=== PATIENT | male | born 1955 | race Caucasian/White ===

== ENCOUNTER 2016-11-01 14:17 | Inpatient (IN) | payer OTHER ==
[2016-11-01] MEDS ORDERED: ONDANSETRON 4 MG/2 ML VIAL ONE (15:00)
[2016-11-01] MEDS ORDERED: ONDANSETRON 4 MG/2 ML VIAL IVP ONE (15:01)
[2016-11-01] MEDS ORDERED: NS 1,000 ML IV ONE ×2 (15:04→15:27)
[2016-11-01 15:25] LABS: ADD DIFF? YES; ADD MORPH? NO; ADD SCAN? NO; ATYPICAL LYMPHOCYTE FLAG 0 (0-99); FRAGMENT RBC FLAG 0 (0-99); HEMATOCRIT 42.1 % (40.0-51.0); HEMOGLOBIN 13.7 g/dL (13.7-17.5); LEFT SHIFT FLG 40 (0-99); LIPEMIA HEMOLYSIS FLAG 80 (0-99); MEAN CELL HEMOGLOBIN CONCENTR. 32.5 g/dL (32.4-36.7); MEAN CELL VOLUME 76.7 fL (81.5-99.8); MEAN PLATELET VOLUME 10.3 fL (8.7-11.7); PLATELET CLUMPS FLAG 10 (0-99); PLATELET COUNT 346 10^3/uL (150-400); RED BLOOD CELL COUNT 5.49 10^6/uL (4.40-6.38); RED CELL DISTRIBUTION WIDTH 15.9 % (11.5-15.2)
[2016-11-01 15:26] LABS: ALANINE AMINOTRANSFERASE 54 IU/L (21-72); ALBUMIN 3.7 g/dL (3.5-5.0); ALKALINE PHOSPHATASE 212 IU/L (38-126); ANION GAP 12 mEq/L (8-16); ASPARTATE AMINOTRANSFERASE 32 IU/L (17-59); BILIRUBIN,TOTAL 1.6 mg/dL (0.1-1.4); CALCIUM 8.5 mg/dL (8.5-10.4); CARBON DIOXIDE 25 mEq/l (22-31); CHLORIDE 92 mEq/L (97-110); GLOMERULAR FILTRATION RATE > 60; GLUCOSE 108 mg/dL (70-100); POTASSIUM 4.9 mEq/L (3.5-5.2); SODIUM 129 mEq/L (134-144); TOTAL PROTEIN 6.9 g/dL (6.3-8.2)
[2016-11-01] MEDS ORDERED: METOCLOPRAMIDE 10 MG/2 ML VIAL IVP ONE (15:27)
--- NOTE | 2016-11-01 15:30 | EDPHY ---
H & P Stated Complaint: n/v/d since wednesday Time Seen by Provider: 11/01/16 15:05 HPI/ROS: CHIEF COMPLAINT: Vomiting and diarrhea HISTORY OF PRESENT ILLNESS: Patient is a 61-year-old man who comes to the emergency department complaining of nausea, vomiting and diarrhea for the last 4 days. No fever. No abdominal pain. No chest pain or shortness of breath. The patient has no sick contacts. He denies any cardiac history. He has not had any blood in his vomit or stool. The diarrhea resolved yesterday but he continues to have nausea and has not been able to eat or drink. He feels dehydrated. REVIEW OF SYSTEMS: Constitutional: denies: chills, fever, recent illness, recent injury EENTM: denies: blurred vision, double vision, nose congestion Respiratory: denies: cough, shortness of breath Cardiac: denies: chest pain, irregular heart rate, lightheadedness, palpitations Gastrointestinal/Abdominal: see HPI Genitourinary: denies: dysuria, frequency, hematuria, pain Musculoskeletal: denies: joint pain, muscle pain Skin: denies: lesions, rash, jaundice, bruising Neurological: denies: headache, numbness, paresthesia, tingling, dizziness, weakness Hematologic/Lymphatic: denies: blood clots, easy bleeding, easy bruising Immunologic/allergic: denies: HIV/AIDS, transplant EXAM: GENERAL: Well-appearing, well-nourished and in no acute distress. HEAD: Atraumatic, normocephalic. EYES: Pupils equal round and reactive to light, extraocular movements intact, sclera anicteric, conjunctiva are normal. ENT: TMs normal, nares patent, oropharynx clear without exudates. Dry mucous membranes. NECK: Normal range of motion, supple without lymphadenopathy or JVD. LUNGS: Breath sounds clear to auscultation bilaterally and equal. No wheezes rales or rhonchi. HEART: Regular rate and rhythm without murmurs, rubs or gallops. ABDOMEN: Soft, nontender, normoactive bowel sounds. No guarding, no rebound. No masses appreciated. BACK: No CVA tenderness, no spinal tenderness, step-offs or deformities EXTREMITIES: Normal range of motion, no pitting or edema. No clubbing or cyanosis. NEUROLOGICAL: Cranial nerves II through XII grossly intact. Normal speech, normal gait. 5/5 strength, normal movement in all extremities, normal sensation PSYCH: Normal mood, normal affect. SKIN: Warm, dry, normal turgor, no visible rashes or lesions. Source: Patient Exam Limitations: No limitations - Personal History Current Tetanus/Diphtheria Vaccine: Yes Tetanus Vaccine Date: 2006 - Medical/Surgical History Hx Asthma: No Hx Chronic Respiratory Disease: No Hx Diabetes: No Hx Cardiac Disease: No Hx Renal Disease: No Hx Cirrhosis: No Hx Alcoholism: No Hx HIV/AIDS: No Hx Splenectomy or Spleen Trauma: No Other PMH: htn, hyperlipidemia, depression - Family History Significant Family History: No pertinent family hx - Social History Smoking Status: Never smoked Alcohol Use: Sober Drug Use: None Constitutional: Initial Vital Signs Temperature (C) 36.7 C 11/01/16 14:32 Heart Rate 108 H 11/01/16 14:32 Respiratory Rate 22 H 11/01/16 14:32 Blood Pressure 128/82 H 11/01/16 14:32 O2 Sat (%) 94 11/01/16 14:32 O2 Delivery Mode Room Air Allergies/Adverse Reactions: Cephalosporins Allergy (Verified 11/01/16 14:31) shellfish derived Allergy (Verified 11/01/16 14:31) Home Medications: Medication Instructions Recorded Cholecalciferol Vit D3 [Vitamin D3 1,000 units PO DAILY 02/21/10 1000 units (OTC)] Lisinopril [Zestril 20 mg (RX)] 20 mg PO DAILY 02/21/10 buPROPion XL [Wellbutrin Xl] 150 mg PO DAILY 02/21/10 Aspirin [Aspirin 81mg (OTC)] 81 mg PO DAILY 07/17/13 Cyanocobalamin [Vitamin B12 100 100 mcg PO DAILY 07/17/13 MCG (OTC)] Montelukast Sodium [Singulair 10 10 mg PO DAILY 07/17/13 mg (RX)] Multivitamins [Tab-A-Kelly] 1 tab PO DAILY 07/17/13 ALPRAZolam [Xanax 0.5 MG (*)] 0.5 mg PO HS PRN 11/01/16 Ciprofloxacin [Cipro] 500 mg PO BID #14 tab 11/01/16 Methocarbamol [Robaxin 500 mg (*)] 1,000 mg PO HS PRN 11/01/16 Ondansetron Odt [Zofran Odt 4 mg 4 mg PO Q4 PRN #20 tab 11/01/16 (RX)] Strattera 40 Mg 40 mg PO DAILY 11/01/16 Testosterone Cyp 150 mg IM SA 11/01/16 [Depo-Testosterone 100mg/ml inj (*)] metroNIDAZOLE [Flagyl] 500 mg PO BID #20 tab 11/01/16 Medical Decision Making - Diagnostics Imaging Results: Imaging Impressions Abdomen CT 11/01/16 15:49 Impression: Long segment of diverticulosis with mild diverticulitis in the sigmoid colon. Mild adjacent lymphadenopathy, which could be from chronic inflammation in the mesentery. Additionally, the draining mesenteric vein, the inferior mesenteric vein, appears to have thrombus and surrounding inflammatory change. Results called and discussed with Cale Diaz MD on November 01, 2016 at 1640 hours. ED Course/Re-evaluation: Discussed the patient's CT results. I will start him on Cipro and Flagyl. He states this has worked for him in the past. His abdominal exam is nontender. He I also discussed with him the mesenteric vein thrombus. I consulted Dr. Osvaldo Sanchez who will consult. I suspect that will start the patient on blood thinners. 5:30 p.m. I discussed the case with Dr. Osvaldo Sanchez and then Dr. Aria Couch. We will start the patient on Xarelto as an outpatient. 5:45 p.m. the patient is persistently tachycardic despite fluids and is now febrile. I will administer Tylenol the rest of his fluid bolus and initiate sepsis workup. He may require admission. I will start him on a dose of Lovenox. 6:40 p.m. I discussed the case again with Dr. Couch who will admit to the medical service. Dr. Maddox is here evaluating the patient and agrees the plan thus far. The patient qualifies as sepsis but not severe sepsis Differential Diagnosis: Partial list of the Differential diagnosis considered include but were not limited to; diverticulitis, gastritis, and although unlikely based on the history and physical exam, I also considered ischemia, volvulus, appendicitis. I discussed these differential diagnoses and the plan with the patient as well as the usual and expected course. The patient understands that the diagnosis is provisional and that in medicine we are not always correct and that further workup is often warranted. Usual and customary warnings were given. All of the patient's questions were answered. The patient was instructed to return to the emergency department should the symptoms at all worsen or return, otherwise to followup with the physician as we discussed. Critical Care Time: I spent a total of 35 minutes of critical care time in obtaining history, performing a physical exam, bedside monitoring of interventions, collecting and interpreting tests and discussion with consultants but not including time spent performing procedures. - Data Points Laboratory Results: Laboratory Results 11/01/16 14:55 11/01/16 14:55 11/01/16 11/01/16 11/01/16 18:40 17:50 14:55 WBC RBC Hgb Hct MCV MCH MCHC RDW Plt Count MPV Neut % (Auto) Lymph % (Auto) [place] % (Auto) Eos % (Auto) Baso % (Auto) Nucleat RBC Rel Count Absolute Neuts (auto) Absolute Lymphs (auto) Absolute Monos (auto) Absolute Eos (auto) Absolute Basos (auto) Absolute Nucleated RBC Immature Gran % Seg Neutrophils % Band Neutrophils % Lymphocytes % Monocytes % Immature Gran # Absolute Seg Neuts Absolute Band Neuts Absolute Lymphocytes Absolute Monocytes RBC/WBC/PLT Morphology Platelet Estimate Giant Platelets ABG Lactic Acid 1.0 mmol/L mmol/L (0.5-1.6) VBG Lactic Acid 1.3 mmol/L mmol/L (0.7-2.1) Turbidity Cancelled Sodium Cancelled Potassium Cancelled Chloride Cancelled Carbon Dioxide Cancelled Anion Gap Cancelled BUN Cancelled Creatinine Cancelled Estimated GFR Cancelled Glucose Cancelled Calcium Cancelled Total Bilirubin 1.6 mg/dL H mg/dL (0.1-1.4) Conjugated Bilirubin 0.5 mg/dL mg/dL (0.0-0.5) Unconjugated Bilirubin 1.1 mg/dL mg/dL (0.0-1.1) AST 35 IU/L IU/L (17-59) ALT 48 IU/L IU/L (21-72) Alkaline Phosphatase 209 IU/L H IU/L (38-126) Total Protein 6.9 g/dL g/dL (6.3-8.2) Albumin 3.7 g/dL g/dL (3.5-5.0) Lipase 100.0 IU/L IU/L (23-300) Specimen Hemolysis Cancelled 11/01/16 11/01/16 14:55 14:55 WBC 20.33 10^3/uL H 10^3/uL (3.80-9.50) RBC 5.49 10^6/uL 10^6/uL (4.40-6.38) Hgb 13.7 g/dL g/dL (13.7-17.5) Hct 42.1 % % (40.0-51.0) MCV 76.7 fL L fL (81.5-99.8) MCH 25.0 pg L pg (27.9-34.1) MCHC 32.5 g/dL g/dL (32.4-36.7) RDW 15.9 % H % (11.5-15.2) Plt Count 346 10^3/uL 10^3/uL (150-400) MPV 10.3 fL fL (8.7-11.7) Neut % (Auto) Not Reported Lymph % (Auto) Not Reported [place] % (Auto) Not Reported Eos % (Auto) Not Reported Baso % (Auto) Not Reported Nucleat RBC Rel Count 0.0 % % (0.0-0.2) Absolute Neuts (auto) Not Reported Absolute Lymphs (auto) Not Reported Absolute Monos (auto) Not Reported Absolute Eos (auto) Not Reported Absolute Basos (auto) Not Reported Absolute Nucleated RBC 0.00 10^3/uL 10^3/uL (0-0.01) Immature Gran % Not Reported Seg Neutrophils % 80 % % Band Neutrophils % 11 % % Lymphocytes % 2 % % Monocytes % 7 % % Immature Gran # Not Reported Absolute Seg Neuts 16.26 10^/uL H 10^/uL (1.70-6.50) Absolute Band Neuts 2.24 10^3/uL H 10^3/uL (0.00-0.70) Absolute Lymphocytes 0.41 10^3/uL L 10^3/uL (1.00-3.00) Absolute Monocytes 1.42 10^3/uL H 10^3/uL (0.30-0.80) RBC/WBC/PLT Morphology NORMAL (NORMAL) Platelet Estimate ADEQUATE (ADEQ) Giant Platelets PRESENT H ABG Lactic Acid VBG Lactic Acid Turbidity Sodium 129 mEq/L L mEq/L (134-144) Potassium 4.9 mEq/L mEq/L (3.5-5.2) Chloride 92 mEq/L L mEq/L (97-110) Carbon Dioxide 25 mEq/l mEq/l (22-31) Anion Gap 12 mEq/L mEq/L (8-16) BUN 15 mg/dL mg/dL (7-23) Creatinine 1.0 mg/dL mg/dL (0.7-1.3) Estimated GFR > 60 Glucose 108 mg/dL H mg/dL (70-100) Calcium 8.5 mg/dL mg/dL (8.5-10.4) Total Bilirubin 1.6 mg/dL H mg/dL (0.1-1.4) Conjugated Bilirubin Unconjugated Bilirubin AST 32 IU/L IU/L (17-59) ALT 54 IU/L IU/L (21-72) Alkaline Phosphatase 212 IU/L H IU/L (38-126) Total Protein 6.9 g/dL g/dL (6.3-8.2) Albumin 3.7 g/dL g/dL (3.5-5.0) Lipase Specimen Hemolysis Medications Given: Discontinued Medications Acetaminophen (Tylenol) 1,000 mg PO EDNOW ONE Stop: 11/01/16 17:40 Last Admin: 11/01/16 17:56 Dose: 1,000 mg Ciprofloxacin (Cipro) 500 mg PO EDNOW ONE PRN Reason: Protocol Stop: 11/01/16 16:46 Last Admin: 11/01/16 16:51 Dose: 500 mg Enoxaparin Sodium (Lovenox) 100 mg SC BID CORBY Stop: 04/30/17 18:14 Last Admin: 11/01/16 18:20 Dose: 100 mg Sodium Chloride (Ns) 1,000 mls @ 0 mls/hr IV ONCE ONE PRN Reason: Wide Open Stop: 11/01/16 15:05 Last Admin: 11/01/16 15:05 Dose: 1,000 mls Sodium Chloride (Ns) 1,000 mls @ 0 mls/hr IV ONCE ONE PRN Reason: Wide Open Stop: 11/01/16 15:28 Last Admin: 11/01/16 15:35 Dose: 1,000 mls Sodium Chloride (Ns) 2,900 mls @ 5,800 mls/hr 30 ml/kg infuse over 30 min ( 2900 ml) IV EDNOW ONE Stop: 11/01/16 18:11 Last Admin: 11/01/16 17:56 Dose: 2,900 mls Metoclopramide HCl (Reglan Injection) 10 mg IVP EDNOW ONE Stop: 11/01/16 15:28 Last Admin: 11/01/16 15:33 Dose: 10 mg Metronidazole (Flagyl) 500 mg PO EDNOW ONE PRN Reason: Protocol Stop: 11/01/16 16:47 Last Admin: 11/01/16 16:51 Dose: 500 mg Ondansetron HCl (Zofran) 4 mg IVP EDNOW ONE Stop: 11/01/16 15:02 Last Admin: 11/01/16 15:04 Dose: 4 mg Departure - Departure Disposition: [facility] Acute Clinical Impression: Mesenteric vein thrombosis Diverticulitis Qualifiers: Diverticulitis site: large intestine Diverticulitis bleeding: without bleeding Diverticulitis complication: without perforation or abscess Qualified Code(s): K57.32 - Diverticulitis of large intestine without perforation or abscess without bleeding Sepsis Qualifiers: Sepsis type: sepsis due to unspecified organism Qualified Code(s): A41.9 - Sepsis, unspecified organism Condition: Fair
[2016-11-01] MEDS ORDERED: METOCLOPRAMIDE 10 MG/2 ML VIAL ONE (15:37)
[2016-11-01 15:58] LABS: ALBUMIN 3.7 g/dL (3.5-5.0); BILIRUBIN,TOTAL 1.6 mg/dL (0.1-1.4); BILIRUBIN-CONJUGATED 0.5 mg/dL (0.0-0.5); BILIRUBIN-UNCONJUGATED 1.1 mg/dL (0.0-1.1); TOTAL PROTEIN 6.9 g/dL (6.3-8.2)
[2016-11-01] MEDS ORDERED: IOPAMIDOL (ISOVUE-300) 100 ML BTL ONE (16:01)
[2016-11-01 16:04] LABS: GIANT PLATELETS PRESENT; PLATELET ESTIMATE ADEQUATE (ADEQ)
[2016-11-01] MEDS ORDERED: CIPROFLOXACIN 500 MG TAB PO ONE (16:45)
[2016-11-01] MEDS ORDERED: metroNIDAZOLE 500 MG TAB PO ONE (16:46)
[2016-11-01] MEDS ORDERED: ACETAMINOPHEN 500 MG TAB PO ONE (17:39)
[2016-11-01] MEDS ORDERED: NS 2,900 ML IV ONE (17:42)
[2016-11-01] MEDS ORDERED: ENOXAPARIN 100 MG/ML SYR SC SCH (18:15)
[2016-11-01] MEDS ORDERED: ACETAMINOPHEN 325 MG TAB PO PRN (19:46)
--- NOTE | 2016-11-01 20:06 | GHP ---
[f rep st] HISTORY AND PHYSICAL DATE OF ADMISSION: 11/01/2016 REASON FOR CONSULTATION: Asked to see the patient by the emergency room physician in regard to abdo jeanna pain. HISTORY OF PRESENT ILLNESS: This 61-year-old male was previously healthy but has had abdominal pain for several days. It is suprapubic and then moved cephalad to well above the umbilicus. He states it is different in character than his previous episodes of diverticulitis. A CT scan done in the emergency department shows inferior mesenteric vein thrombosis extending all t he way to its junction with the portal vein-splenic vein confluence. There is inflammation around t his, and the inflammation is more impressive cephalad to the sigmoid colon than it is around the sig moid. While the radiologist did call this diverticulitis, I discussed this with him, and it is fair ly early or mild or even chronic diverticulitis, as opposed to an impressive acute inflammatory proc ess. Therefore, I suspect this is not the usual kind of diverticulitis which is clearly causative o f an inferior mesenteric vein thrombosis and that there is a possibility the patient has developed a primary inferior mesenteric vein thrombosis. Inferior mesenteric vein thrombosis carries significant mortality and requires anticoagulation. I w ould be uncomfortable sending this patient home merely on Xarelto at this time and feel he should re ceive a heparin product immediately and then be transitioned to an anticoagulant orally and observed for any worsening symptoms. I do not feel there is any role for interventional radiology for clot lysis at this time. ALLERGIES: Cephalexin. CURRENT MEDICATIONS: Lisinopril, simvastatin, several antidepressants, aspirin 81 mg. SOCIAL HISTORY: Nonsmoker. Alcohol use is rare. 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 PAST SURGICAL HISTORY: Laparoscopic cholecystectomy, varicocelectomy, left hip impingement correcti on. REVIEW OF SYSTEMS: Denies asthma, heart trouble, diabetes, epilepsy, or rheumatic fever. He denies any previous blood clots. PHYSICAL EXAMINATION: GENERAL: Pleasant, obese male in mild distress. HEENT: No scleral icterus. Pharynx clear. NECK: Supple without adenopathy. LUNGS: Clear. HEART: Normal S1, S2 without m urmur. ABDOMEN: Soft with mild pain on palpation, none in the left lower quadrant. No masses or h ernias are found. LABORATORY EXAM: White blood count of 20,000, which, again, is out of proportion to the minimal div erticulitis that he has. Lactic acid is normal at 1.0. Electrolytes show mild hyponatremia. Creat inine is 1, bilirubin 1.6. Lipase is normal. ASSESSMENT: Inferior mesenteric vein thrombosis with surrounding inflammatory changes in the fat st ructures, extending cephalad well above the sigmoid colon. I believe his primary problem is inferio r mesenteric vein thrombosis with the surrounding inflammatory changes of phlebitis and that the div erticulitis is a minor contributor to his pain. As this has the potential for significant morbidity and the literature states a 13% mortality in cases of inferior mesenteric vein thrombosis, I have r ecommended he be admitted by the medicine service. I would recommend a hypercoagulation workup be d one, as this may be a primary event, and the patient be anticoagulated adequately prior to discharge . A question moving forward will be the length of time the anticoagulation should continue. An inf erior mesenteric vein thrombosis caused by severe diverticulitis (most severe diverticulitis does no t cause such a thrombosis) would likely only require a short 3-month type course of anticoagulation after the diverticulitis is treated. If this is a primary event from a hypercoagulable state, a lif etime of anticoagulation might be appropriate. /[id number]/MODL
[2016-11-01] MEDS: NS 1,000 ML IV SCH (20:30)
[2016-11-01] MEDS: CIPROFLOXACIN 400 MG/DEXTROSE 200 ML IV SCH (20:30)
[2016-11-01] MEDS: ENOXAPARIN 100 MG/ML SYR SC SCH (20:31)
--- NOTE | 2016-11-01 20:47 | GHP ---
[f rep st] HISTORY AND PHYSICAL DATE OF ADMISSION: 09/01/2016 CHIEF COMPLAINT: Diarrhea. HISTORY OF PRESENT ILLNESS: The patient is a 61-year-old male who has had nausea, vomiting, and mauricio rrhea for the last 4 days. He thought he had a viral gastroenteritis. He has had a little bit of f ever. He has had some abdominal pain in his left lower quadrant. He has had minimal p.o. intake fo r the last 2 days. He has never had any blood in his stool. PAST MEDICAL HISTORY: 1. Hypertension. 2. Hyperlipidemia. 3. Recurrent diverticulitis. PAST SURGICAL HISTORY: Cholecystectomy. MEDICATIONS: Please see computer records for full, detailed list. ALLERGIES: To cephalosporins and shellfish. SOCIAL HISTORY: No smoking. Occasional alcohol. He lives alone. REVIEW OF SYSTEMS: Complete review of systems obtained. Review of systems is negative regarding co nstitutional, HEENT, GI, pulmonary, cardiovascular, , hematology, skin, musculoskeletal, endocrine , psych, except for positives as noted in the HPI. FAMILY HISTORY: Mom with Crohn disease. Sister with diverticulitis. PHYSICAL EXAMINATION: GENERAL: Well-developed, well-nourished male, in no acute distress. VITAL S IGNS: Temperature is 38.5, pulse 112, blood pressure 118/72, satting 95% in room air. EYES: Araceli l conjunctivae. Pupils equal, round, reactive to light. ENT: Normal ears and nose. Hearing intac t. Normal lips and teeth. Oropharynx moist. NECK: Trachea midline. No thyromegaly. CHEST: Nor mal respiratory effort. Lungs clear to auscultation bilaterally. CARDIOVASCULAR SYSTEM: Regular r hythm. No murmur. No lower extremity edema. ABDOMEN: Soft, nontender. No hepatosplenomegaly. S KIN: Warm, dry, intact, without rash. MUSCULOSKELETAL: No cyanosis or clubbing. Strength 5/5 in upper and lower extremities. NEUROLOGIC: Cranial nerves intact. Normal sensation to light touch. PSYCH ASSESSMENT: Alert and oriented x3, with normal affect, normal judgment and insight, and norm al memory. LABORATORY DATA: White count 20.33 with 11% bands. Hematocrit 42. Platelets 346. Sodium 129, potassium 4.9, chloride 92, bicarb 25, BUN 15, creatinine 1.0, glucose 108, total bili 1 .6, alk phos 209. Lactate is 1.3. CT scan shows mild sigmoid diverticulitis. He has an inferior mesenteric vein thrombosis. This case was discussed with Dr. Diaz, emergency room physician. He has spoken with Dr. Yayo junior. Dr. Sanchez has seen the patient in consultation, believes that he needs inpatient treatment. ASSESSMENT AND PLAN: 1. Sigmoid diverticulitis: Continue ciprofloxacin and Flagyl started in the emergency room. 2. Inferior mesenteric vein thrombosis: Continue subcu Lovenox started in the emergency room. He can be transitioned to warfarin versus an oral agent. His lactate is normal, and I do not think his bowel is at risk at this time. However, he needs close monitoring. 3. Sepsis versus systemic inflammatory response syndrome: Patient is tachycardic and febrile, alth ough quite nontoxic appearing. His lactate is okay. He will be administered antibiotics and IV flu ids as above, and continue to monitor. 4. Hypertension: Continue home medications, once reconciled. COR STATUS: Full. ADMISSION STATUS: Will admit to inpatient as he is quite ill and anticipate greater than 2 midnight s required for stabilization. DEEP VENOUS THROMBOSIS PROPHYLAXIS: Full anticoagulation as discussed above. /[id number]/MODL
[2016-11-01] MEDS: oxyCODONE IR 5 MG TAB PO PRN (20:49)
[2016-11-02] MEDS: oxyCODONE IR 5 MG TAB PO PRN ×4 (01:58→21:45)
[2016-11-02 04:46] LABS: ADD DIFF? YES; ADD MORPH? NO; ADD SCAN? NO; ATYPICAL LYMPHOCYTE FLAG 10 (0-99); FRAGMENT RBC FLAG 0 (0-99); HEMATOCRIT 36.9 % (40.0-51.0); HEMOGLOBIN 11.9 g/dL (13.7-17.5); LEFT SHIFT FLG 20 (0-99); LIPEMIA HEMOLYSIS FLAG 80 (0-99); MEAN CELL HEMOGLOBIN 25.1 pg (27.9-34.1); MEAN CELL HEMOGLOBIN CONCENTR. 32.2 g/dL (32.4-36.7); MEAN CELL VOLUME 77.8 fL (81.5-99.8); MEAN PLATELET VOLUME 10.1 fL (8.7-11.7); PLATELET CLUMPS FLAG 0 (0-99); PLATELET COUNT 317 10^3/uL (150-400); RED BLOOD CELL COUNT 4.74 10^6/uL (4.40-6.38)
[2016-11-02 05:06] LABS: ALANINE AMINOTRANSFERASE 46 IU/L (21-72); ALKALINE PHOSPHATASE 189 IU/L (38-126); ANION GAP 8 mEq/L (8-16); ASPARTATE AMINOTRANSFERASE 28 IU/L (17-59); BILIRUBIN,TOTAL 1.3 mg/dL (0.1-1.4); BILIRUBIN-CONJUGATED 0.5 mg/dL (0.0-0.5); BILIRUBIN-UNCONJUGATED 0.8 mg/dL (0.0-1.1); CALCIUM 7.5 mg/dL (8.5-10.4); CARBON DIOXIDE 21 mEq/l (22-31); CHLORIDE 101 mEq/L (97-110); GLOMERULAR FILTRATION RATE > 60; GLUCOSE 103 mg/dL (70-100); POTASSIUM 4.5 mEq/L (3.5-5.2); SODIUM 130 mEq/L (134-144); TOTAL PROTEIN 5.7 g/dL (6.3-8.2)
[2016-11-02 05:18] LABS: INR 1.28 (0.83-1.16)
[2016-11-02 05:35] LABS: HYPOCHROMIA 1+; POLYCHROMASIA 1+
[2016-11-02 05:36] LABS: PLATELET ESTIMATE ADEQUATE (ADEQ)
[2016-11-02] MEDS: CIPROFLOXACIN 400 MG/DEXTROSE 200 ML IV SCH ×2 (08:07→20:09)
[2016-11-02 09:08] VITALS: RESP 18
[2016-11-02] MEDS: ENOXAPARIN 100 MG/ML SYR SC SCH ×2 (10:32→20:09)
--- NOTE | 2016-11-02 11:20 | HOSPPROG ---
Hospitalist Progress Note Assessment/Plan: 61 yo admitted with abdominal pain, diagnosed with diverticulitis. This was complicated by inferior mesenteric vein thrombosis likely secondary to the inflammation of the diverticulitis. # diverticulitis. Still symptomatic but improving. Will continue IV antibiotics and IV fluids with bowel rest. # inferior mesenteric vein thrombosis. Likely secondary to inflammation of diverticulitis. Doubt secondary hypercoagulable state given the thrombus is right in the area of the diverticulitis. Will treat for 3-6 months and defer to outpatient physician if they want to pursue a hyper coag panel do not feel it is necessary at this time. # dyslipidemia # hypertension Subjective: pt new to me and chart reviewed, feeling a bit better today but still with discomfort LLQ. no cp, no sob, no HAROON Objective: Vital Signs Temp Pulse Resp BP Pulse Ox 36.8 C 98 18 117/72 100 11/02/16 08:00 11/02/16 08:00 11/02/16 08:00 11/02/16 04:00 11/02/16 08:00 Laboratory Results 11/02/16 04:36 11/02/16 04:36 11/01/16 11/02/16 11/03/16 05:59 05:59 05:59 Intake Total 2900 Output Total 475 Balance 2425 PT 16.0 SEC (12.0-15.0) H 11/02/16 04:36 INR 1.28 (0.83-1.16) H 11/02/16 04:36 - Physical Exam Constitutional: no apparent distress, obese Eyes: PERRL, anicteric sclera, EOMI Ears, Nose, Mouth, Throat: moist mucous membranes, hearing normal Cardiovascular: regular rate and rhythym, no murmur, rub, or gallop Respiratory: no respiratory distress, clear to auscultation Gastrointestinal: normoactive bowel sounds, no palpable masses, tenderness, distension Genitourinary: No pan in urethra Skin: warm, normal color Musculoskeletal: full muscle strength Neurologic: AAOx3 Psychiatric: interacting appropriately, not anxious, not encephalopathic ICD10 Worksheet Patient Problems: Problems Problem Status Onset Acute cholecystitis Acute Diverticulitis Acute Mesenteric vein thrombosis Acute Sepsis Acute
[2016-11-02] MEDS ORDERED: ALPRAZolam 0.5 MG TAB PO PRN (11:58)
[2016-11-02] MEDS ORDERED: METHOCARBAMOL 500 MG TAB PO PRN (11:58)
[2016-11-02] MEDS: ONDANSETRON 4 MG/2 ML VIAL IVP PRN ×2 (12:51→21:45)
[2016-11-02] MEDS: TEARS/DEXTRAN 70/HYPROMELLOSE 15 ML OPHT.BTL EACHEYE PRN (20:09)
[2016-11-02] MEDS ORDERED: IPRATROPIUM/ALBUTEROL 3 ML DEYVIAL ONE (20:45)
[2016-11-02] MEDS: NS 1,000 ML IV SCH (21:45)
[2016-11-03] MEDS: oxyCODONE IR 5 MG TAB PO PRN (06:24)
[2016-11-03 07:23] VITALS: BP 113/63; PULSE 93; TEMP 98.6
[2016-11-03 07:26] VITALS: O2SAT 90
[2016-11-03] MEDS: TEARS/DEXTRAN 70/HYPROMELLOSE 15 ML OPHT.BTL EACHEYE PRN (08:00)
[2016-11-03] MEDS: CIPROFLOXACIN 400 MG/DEXTROSE 200 ML IV SCH (08:34)
[2016-11-03] MEDS ORDERED: MONTELUKAST SODIUM 10 MG TAB PO SCH (09:00)
[2016-11-03] MEDS ORDERED: CHOLECALCIFEROL VIT D3 1,000 UNITS TAB PO SCH (09:00)
[2016-11-03] MEDS ORDERED: STRATTERA 40 MG PO SCH ×2 (09:00)
[2016-11-03] MEDS ORDERED: CYANO/VITAMIN B12 100 MCG TAB PO SCH (09:00)
[2016-11-03] MEDS ORDERED: ASPIRIN 81 MG CHEWABLE TAB PO SCH (09:00)
[2016-11-03] MEDS ORDERED: buPROPion XL 150 MG TAB PO SCH (09:00)
[2016-11-03] MEDS ORDERED: MULTIVITAMINS 1 EACH TAB PO SCH (09:00)
[2016-11-03 10:11] LABS: ALANINE AMINOTRANSFERASE 39 IU/L (21-72); ALKALINE PHOSPHATASE 217 IU/L (38-126); ANION GAP 9 mEq/L (8-16); ASPARTATE AMINOTRANSFERASE 27 IU/L (17-59); BILIRUBIN,TOTAL 0.9 mg/dL (0.1-1.4); CALCIUM 7.5 mg/dL (8.5-10.4); CARBON DIOXIDE 25 mEq/l (22-31); CHLORIDE 97 mEq/L (97-110); CREATININE 0.9 mg/dL (0.7-1.3); GLOMERULAR FILTRATION RATE > 60; GLUCOSE 120 mg/dL (70-100); POTASSIUM 4.2 mEq/L (3.5-5.2); SODIUM 131 mEq/L (134-144); TOTAL PROTEIN 5.8 g/dL (6.3-8.2)
[2016-11-03 10:25] LABS: ADD DIFF? YES; ADD MORPH? NO; ADD SCAN? NO; ATYPICAL LYMPHOCYTE FLAG 0 (0-99); FRAGMENT RBC FLAG 0 (0-99); HEMOGLOBIN 11.4 g/dL (13.7-17.5); LEFT SHIFT FLG 30 (0-99); LIPEMIA HEMOLYSIS FLAG 80 (0-99); MEAN CELL HEMOGLOBIN 24.9 pg (27.9-34.1); MEAN CELL HEMOGLOBIN CONCENTR. 31.7 g/dL (32.4-36.7); MEAN CELL VOLUME 78.8 fL (81.5-99.8); MEAN PLATELET VOLUME 10.5 fL (8.7-11.7); PLATELET CLUMPS FLAG 0 (0-99); PLATELET COUNT 318 10^3/uL (150-400); RED BLOOD CELL COUNT 4.57 10^6/uL (4.40-6.38); RED CELL DISTRIBUTION WIDTH 16.1 % (11.5-15.2)
[2016-11-03 11:37] LABS: HYPOCHROMIA 1+; MICROCYTES 1+; PLATELET ESTIMATE ADEQUATE (ADEQ); POLYCHROMASIA 2+
[2016-11-03 11:38] LABS: GIANT PLATELETS PRESENT; LARGE PLATELETS PRESENT; SCHISTOCYTES 1+
[2016-11-03] MEDS: ENOXAPARIN 100 MG/ML SYR SC SCH (11:55)
[2016-11-03] MEDS ORDERED: VANCOMYCIN 125 MG/2.5 ML UDL PO SCH (12:00)
--- NOTE | 2016-11-03 13:58 | GDS ---
[f rep st] DISCHARGE SUMMARY DIAGNOSES: 1. Diverticulitis. 2. Clostridium difficile colitis. 3. Escherichia coli colitis. 4. Small inferior mesenteric venous clot, likely secondary to inflammation but can not rule out primary clot, consider hypercoag work up as outpatient. PROCEDURES: Abdominal CT scan: Long segment of diverticulosis with mild diverticulitis in the sigmoid colon. Mild adjacent lymphadenopathy. Additionally, the draining mesenteric vein and inferior mesenteric vein appear to have thrombus and surrounding inflammatory change. HOSPITAL COURSE: The patient is a healthy 61-year-old who comes in with abdominal pain. He had a CT scan done in the emergency department with the above findings. He was treated for presumptive diverticulitis and improved. He also had his stools sent for culture, the results showing C difficile and E coli. He was treated for these with Flagyl and Cipro, which also treats diverticulitis. He improved significantly throughout the course of his hospitalization and was tolerating regular food at the time of discharge. He will be discharged to complete 7 more days of Cipro and 10 more days of Flagyl. He was noted to have a small inferior mesenteric venous clot. I did review this with the radiologist, and Dr. Tsang. I will treat him for 3 months with anticoagulation for this and consideration for follow up with Hematology or primary care work up for hypercoag. state. CONDITION ON DISCHARGE: Good. He is feeling much better, much less tenderness. He has been afebrile. He still has an elevated white count. This is likely secondary to the C difficile colitis. DISCHARGE MEDICATIONS: Please see discharge medication form. Additional medications to his home medication list include Cipro 500 b.i.d. for 7 days, Flagyl 500 t.i.d. daily for 10 days, and Eliquis 5 b.i.d. for 3 months. Total time spent on patient on the day of discharge and coordination of care was 35 minutes. /[id number]/MODL MTDD
== END 2016-11-03 14:57 | disposition home or self-care (01) | DRG 392 ==
LOC: OBSVTOIN 18:42 → F3E 19:57
PROVIDERS: ADMIT Internal Medicine; ATTEND Internal Medicine
DX: K57.32 Diverticulitis of large intestine without perforation or abscess without bleeding (principal); I82.890 Acute embolism and thrombosis of other specified veins; I10 Essential (primary) hypertension; E78.5 Hyperlipidemia, unspecified
CPT/HCPCS: 96374; J0744; J1650; J2405; J2765; Q9967

== ENCOUNTER 2017-08-25 23:30 | Inpatient (IN) | payer OTHER ==
[2017-08-25] MEDS ORDERED: NS 1,000 ML IV ONE (23:39)
--- NOTE | 2017-08-25 23:41 | EDPHY ---
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 Worsening lower abdominal pain. He states he has had some chills. No recorded fever. Denies vomiting. Denies urinary symptoms. Denies chest pain or shortness of breath. He does feel anxious. Does feel lightheaded. 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 Family History: Stabbing history ROS REVIEW OF SYSTEMS: A comprehensive 10 point review of systems is otherwise negative aside from elements mentioned in the history of present illness. Exam Constitutional triage nursing summary reviewed, vital signs reviewed, awake/ alert. Noted be tachycardic at triage. Eyes normal conjunctivae and sclera, EOMI, PERRLA. HENT normal inspection, atraumatic, moist mucus membranes, no epistaxis, neck supple/ no meningismus, no raccoon eyes. Respiratory clear to auscultation bilaterally, normal breath sounds, no respiratory distress, no wheezing. Cardiovascular rate normal, regular rhythm, no murmur, no edema, distal pulses normal. Gastrointestinal tender palpation lower abdomen, no peritoneal signs, no rebound, no guarding, normal bowel sounds, no distension, no pulsatile mass. Genitourinary no CVA tenderness. Musculoskeletal no midline vertebral tenderness, full range of motion, no calf swelling, no tenderness of extremities, no meningismus, good pulses, neurovascularly intact. Skin pink, warm, & dry, no rash, skin atraumatic. Neurologic awake, alert and oriented x 3, AAOx3, moves all 4 extremities equally, motor intact, sensory intact, CN II-XII intact, normal cerebellar, normal vision, normal speech. Psychiatric normal mood/affect. Heme/Lymph/Immune no lymphadenopathy. Differential diagnosis includes but is not limited to and in no particular order : Diverticulitis, colitis, C diff, upper GI bleed, gastritis Bowel obstruction , appendicitis, gallbladder disease, colitis, enteritis, perforated viscus, GERD, esophagitis, urinary tract infection, pyelonephritis, kidney stones Medical Decision Making: Plan for this patient IV establishment with IV fluid bolus, check stool studies, CT scan abdomen pelvis with IV contrast, IV fluids, EKG for tachycardia, check electrolytes, white count, lactic acid. Re-evaluate. Re-evaluation: EKG interpretation by me on record in [employer] system. Impression time of EKG 2339, sinus tachycardia rate of [address] elevation[address] No ST depression. No significant T-wave abnormalities. 1245: CT scan abdomen pelvis with IV contrast called to me by Dr. Harpreet Sharma , this shows sigmoid diverticulitis. No abscess. No free air no perforation. 1245: This time I have ordered patient IV Cipro and IV Flagyl. Will admit to the hospital service for sigmoid diverticulitis. White count noted. Will need to repeat lactate. Source: Patient - Personal History Current Tetanus Diphtheria and Acellular Pertussis (TDAP): No Tetanus Vaccine Date: 2006 - Medical/Surgical History Hx Asthma: No Hx Chronic Respiratory Disease: No Hx Diabetes: No Hx Cardiac Disease: No Hx Renal Disease: No Hx Cirrhosis: No Hx Alcoholism: No Hx HIV/AIDS: No Hx Splenectomy or Spleen Trauma: No Other PMH: htn, hyperlipidemia, depression, diverticulitis - Social History Smoking Status: Never smoked Constitutional: Initial Vital Signs Temperature (C) 36.4 C 08/25/17 23:34 Heart Rate 135 H 08/25/17 23:34 Respiratory Rate 20 08/25/17 23:34 Blood Pressure 150/113 H 08/25/17 23:34 O2 Sat (%) 99 08/25/17 23:34 O2 Delivery Mode Room Air Allergies/Adverse Reactions: Cephalosporins Allergy (Verified 08/25/17 23:33) shellfish derived Allergy (Verified 08/25/17 23:33) Home Medications: Medication Instructions Recorded Cholecalciferol Vit D3 [Vitamin D3 1,000 units PO DAILY 02/21/10 (*)] Lisinopril [Zestril 20 mg (*)] 20 mg PO DAILY 02/21/10 buPROPion XL [Wellbutrin 150mg XL] 150 mg PO DAILY 02/21/10 Aspirin [Aspirin 81mg (*)] 81 mg PO DAILY 07/17/13 Cyanocobalamin [Vitamin B12 (*)] 100 mcg PO DAILY 07/17/13 Montelukast Sodium [Singulair 10 10 mg PO DAILY 07/17/13 mg (*)] Multivitamins [Multivitamin (*)] 1 tab PO DAILY 07/17/13 ALPRAZolam [Xanax 0.5 MG (*)] 0.5 mg PO HS PRN 11/01/16 Methocarbamol [Robaxin 500 mg (*)] 1,000 mg PO HS PRN 11/01/16 Strattera 40 Mg 40 mg PO DAILY 11/01/16 Testosterone Cyp 150 mg IM SA 11/01/16 [Depo-Testosterone 100mg/ml inj (*)] Apixaban [Eliquis] 5 mg PO AD #70 tab 11/03/16 Ciprofloxacin HCl [Ciprofloxacin] 500 mg PO BID #14 tab 11/03/16 metroNIDAZOLE [Flagyl 500 mg (*)] 500 mg PO TID #30 tab 11/03/16 Medical Decision Making - Data Points Laboratory Results: Laboratory Results 08/25/17 23:44 08/25/17 23:44 08/25/17 08/25/17 08/25/17 23:55 23:44 23:44 WBC RBC Hgb Hct MCV MCH MCHC RDW Plt Count MPV Neut % (Auto) Lymph % (Auto) [place] % (Auto) Eos % (Auto) Baso % (Auto) Nucleat RBC Rel Count Absolute Neuts (auto) Absolute Lymphs (auto) Absolute Monos (auto) Absolute Eos (auto) Absolute Basos (auto) Absolute Nucleated RBC Immature Gran % Immature Gran # PT INR APTT VBG Lactic Acid 2.5 mmol/L H mmol/L (0.7-2.1) Sodium 143 mEq/L mEq/L (135-145) Potassium 4.3 mEq/L mEq/L (3.5-5.2) Chloride 104 mEq/L mEq/L (97-110) Carbon Dioxide 21 mEq/l L mEq/l (22-31) Anion Gap 18 mEq/L H mEq/L (8-16) BUN 42 mg/dL H mg/dL (7-23) Creatinine 1.2 mg/dL mg/dL (0.7-1.3) Estimated GFR > 60 Glucose 103 mg/dL H mg/dL (70-100) Calcium 11.7 mg/dL H mg/dL (8.5-10.4) Phosphorus 3.1 mg/dL mg/dL (2.5-4.5) Total Bilirubin 0.8 mg/dL mg/dL (0.1-1.4) Conjugated Bilirubin 0.4 mg/dL mg/dL (0.0-0.5) Unconjugated Bilirubin 0.4 mg/dL mg/dL (0.0-1.1) AST 29 IU/L IU/L (17-59) ALT 32 IU/L IU/L (21-72) Alkaline Phosphatase 73 IU/L IU/L (38-126) Total Protein 8.5 g/dL H g/dL (6.3-8.2) Albumin 4.9 g/dL g/dL (3.5-5.0) Lipase 310 IU/L H IU/L (23-300) Patient ABO/Rh O NEGATIVE Antibody Screen NEGATIVE 08/25/17 08/25/17 23:44 23:44 WBC 22.88 10^3/uL H 10^3/uL (3.80-9.50) RBC 5.86 10^6/uL 10^6/uL (4.40-6.38) Hgb 15.9 g/dL g/dL (13.7-17.5) Hct 48.9 % % (40.0-51.0) MCV 83.4 fL fL (81.5-99.8) MCH 27.1 pg L pg (27.9-34.1) MCHC 32.5 g/dL g/dL (32.4-36.7) RDW 18.5 % H % (11.5-15.2) Plt Count 489 10^3/uL H 10^3/uL (150-400) MPV 10.6 fL fL (8.7-11.7) Neut % (Auto) 70.8 % % (39.3-74.2) Lymph % (Auto) 18.6 % % (15.0-45.0) [place] % (Auto) 8.4 % % (4.5-13.0) Eos % (Auto) 0.7 % % (0.6-7.6) Baso % (Auto) 0.6 % % (0.3-1.7) Nucleat RBC Rel Count 0.0 % % (0.0-0.2) Absolute Neuts (auto) 16.20 10^3/uL H 10^3/uL (1.70-6.50) Absolute Lymphs (auto) 4.25 10^3/uL H 10^3/uL (1.00-3.00) Absolute Monos (auto) 1.93 10^3/uL H 10^3/uL (0.30-0.80) Absolute Eos (auto) 0.15 10^3/uL 10^3/uL (0.03-0.40) Absolute Basos (auto) 0.14 10^3/uL H 10^3/uL (0.02-0.10) Absolute Nucleated RBC 0.00 10^3/uL 10^3/uL (0-0.01) Immature Gran % 0.9 % % (0.0-1.1) Immature Gran # 0.21 10^3/uL H 10^3/uL (0.00-0.10) PT 12.7 SEC SEC (12.0-15.0) INR 0.93 (0.83-1.16) APTT 29.2 SEC SEC (23.0-38.0) VBG Lactic Acid Sodium Potassium Chloride Carbon Dioxide Anion Gap BUN Creatinine Estimated GFR Glucose Calcium Phosphorus Total Bilirubin Conjugated Bilirubin Unconjugated Bilirubin AST ALT Alkaline Phosphatase Total Protein Albumin Lipase Patient ABO/Rh Antibody Screen Medications Given: Discontinued Medications Sodium Chloride (Ns) 1,000 mls @ 0 mls/hr IV EDNOW ONE; Wide Open PRN Reason: Protocol Stop: 08/25/17 23:40 Last Admin: 08/25/17 23:46 Dose: 1,000 mls Sodium Chloride (Ns) 1,000 mls @ 0 mls/hr IV ONCE ONE PRN Reason: Wide Open Stop: 08/26/17 00:03 Last Admin: 08/26/17 00:03 Dose: 1,000 mls Morphine Sulfate (Morphine) 6 mg IVP EDNOW ONE Stop: 08/25/17 23:54 Last Admin: 08/26/17 00:03 Dose: 6 mg Ondansetron HCl (Zofran) 4 mg IVP EDNOW ONE Stop: 08/25/17 23:54 Last Admin: 08/26/17 00:03 Dose: 4 mg Departure - Departure Disposition: [facility] Inpatient Acute Clinical Impression: Acute diverticulitis Condition: Fair Referrals: Supriya Muse MD [Primary Care Provider] - As per Instructions
--- NOTE | 2017-08-25 23:41 | CPEKG ---
Heart Rate: 126 RR Interval: 476 P-R Interval: 152 QRSD Interval: 86 QT Interval: 284 QTC Interval: 412 P Cren[place]: 34 QRS Crenshaw: 39 T Wave Crenshaw: 51 EKG Severity - BORDERLINE ECG - EKG Impression: SINUS TACHYCARDIA EKG Impression: VENTRICULAR PREMATURE COMPLEX EKG Impression: PROBABLE LEFT ATRIAL ABNORMALITY Electronically Signed By: Rosas Marte 27-Aug-2017 12:28:22
[2017-08-25 23:51] LABS: PLATELET COUNT 489 10^3/uL (150-400)
[2017-08-25] MEDS ORDERED: ONDANSETRON 4 MG/2 ML VIAL IVP ONE (23:53)
[2017-08-26] LABS: INR 0.93 (0.83-1.16); PROTIME(PATIENT) 12.7 SEC (12.0-15.0)
[2017-08-26] MEDS ORDERED: NS 1,000 ML IV ONE (00:02)
[2017-08-26] MEDS ORDERED: IOPAMIDOL (ISOVUE-300) 100 ML BTL ONE (00:04)
[2017-08-26] MEDS ORDERED: CIPROFLOXACIN 400 MG/DEXTROSE 200 ML IV ONE (00:44)
[2017-08-26] MEDS ORDERED: ACETAMINOPHEN 325 MG TAB PO PRN (01:16)
[2017-08-26] MEDS ORDERED: ONDANSETRON 4 MG/2 ML VIAL IVP PRN (01:16)
[2017-08-26] MEDS: LORazepam 2 MG/ML INJ IVP PRN ×2 (02:43→08:55)
[2017-08-26] MEDS: NS 1,000 ML IV SCH ×3 (02:44→21:31)
--- NOTE | 2017-08-26 02:49 | PDGENHP ---
History and Physical - Chief Complaint Lower abdominal pain, black tarry stools - History of Present Illness Source-patient provides history and appears reliable. The patient is an RN. EMR was reviewed and case discussed with ED provider. HPI-this is a very pleasant 61-year-old gentleman with past medical history significant for diverticulitis, E coli colitis with admission in October 2016, C diff, history inferior mesenteric thrombus, HTN, HLD, depression who presents to the emergency department today with complaints of worsening lower abdominal pain and melenic stools. Patient reports approximately 3 days ago he developed lower abdominal cramping and sharp pain that has been progressively worsening. Patient states that he was having some bright red blood per rectum with bowel movements and he was having loose stools. Patient does report history of hemorrhoids and thought that this was likely cause. He did developed some nausea without vomiting. He also reports he has been experiencing chills and sweats but no fever. Patient's appetite is in decline. 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 He subsequently was able to get to work, however his pain progressively worsened and he noted that his heart rate was in the 120s to 130s and so patient presented to ED for further evaluation. Patient denies any lightheadedness, chest pain, shortness of breath. Patient has had a colonoscopy in the past but no history of EGD. Patient denies any upper abdominal pain and no vomiting. He has a history of it inferior mesenteric thrombus but his Eliquis was discontinued several months after his diagnosis in 2016. Patient currently only takes a 81 mg aspirin. History Information - Allergies/Home Medication List Allergies/Adverse Reactions: Cephalosporins Allergy (Verified 08/25/17 23:33) Home Medications: Cholecalciferol Vit D3 [Vitamin D3 (*)] 1,000 units PO DAILY 02/21/10 [Last Taken 11/01/16] Lisinopril [Zestril 20 mg (*)] 20 mg PO DAILY 02/21/10 [Last Taken 11/01/16] buPROPion XL [Wellbutrin 150mg XL] 150 mg PO DAILY 02/21/10 [Last Taken 11/01/16 ] Aspirin [Aspirin 81mg (*)] 81 mg PO DAILY 07/17/13 [Last Taken 11/01/16] Cyanocobalamin [Vitamin B12 (*)] 100 mcg PO DAILY 07/17/13 [Last Taken 11/01/16] Montelukast Sodium [Singulair 10 mg (*)] 10 mg PO DAILY 07/17/13 [Last Taken ] Multivitamins [Multivitamin (*)] 1 tab PO DAILY 07/17/13 [Last Taken 11/01/16] ALPRAZolam [Xanax 0.5 MG (*)] 0.5 mg PO HS PRN 11/01/16 [Last Taken 10/30/16] Methocarbamol [Robaxin 500 mg (*)] 1,000 mg PO HS PRN 11/01/16 [Last Taken 10/18] Strattera 40 Mg 40 mg PO DAILY 11/01/16 [Last Taken 11/01/16] Testosterone Cyp [Depo-Testosterone 100mg/ml inj (*)] 150 mg IM SA 11/01/16 [ Last Taken 10/24/16] I have personally reviewed and updated: family history, medical history, social history, surgical history - Past Medical History Additional medical history: Diverticulitis, history C diff 10/2016, inferior mesenteric thrombus 10/2016, depression, hyperlipidemia, hypertension - Surgical History Additional surgical history: Cholecystectomy, [place] a, varicocele, colonoscopy - Family History Additional family history: Sister with diverticulitis, mother with history Crohn 's - Social History Smoking Status: Never smoked Alcohol Use: Occasionally Drug Use: None Additional social history: Patient is an RN at [employer]. Cor is full Review of Systems Review of Systems: ROS: 10pt was reviewed & negative except for what was stated in HPI & below Constitutional: Reports: chills, other (Sweats). Denies: fever EENMT: Reports: no symptoms. Denies: nose congestion, sore throat Cardiac: Denies: chest pain, edema, lightheadedness, palpitations Respiratory: Denies: cough, shortness of breath Gastrointestinal: Reports: black stools (Patient developed melenic tardy stools this evening and reports formed stools with several episodes. See HPI), rectal bleeding (Initially had bright red blood per rectum over the last 3 days.), diarrhea (Patient reports loose stools but no watery diarrhea.), nausea. Denies : vomitting Genitourinary: Reports: no symptoms. Denies: hematuria Muscolosketal: Denies: joint pain, muscle pain Skin: Reports: no symptoms. Denies: rash Neurological: Reports: no symptoms. Denies: headache, numbness Hematologic/Lymphatic: Reports: blood clots (History of inferior mesenteric thrombus) Physical Exam Physical Exam: Selected Entries 08/25/17 23:34 Heart Rate 135 H Respiratory 20 Rate O2 Sat (%) 99 Temperature (C) 36.4 C Blood Pressure 150/113 H Mean Arterial 125 H Pressure (MAP) O2 Delivery Room Air Mode Temperature Oral Source Temp Pulse Resp BP Pulse Ox 36.8 C 110 H 18 160/84 H 95 08/26/17 01:26 08/26/17 01:26 08/26/17 01:26 08/26/17 01:26 08/26/17 01:26 Constitutional: no apparent distress, uncomfortable, other (Patient is lying still in bed. He cradle says lower abdomen.) Eyes: PERRL, anicteric sclera, EOMI (Grossly intact) Ears, Nose, Mouth, Throat: dry mucous membranes (Slightly dry), other (No nasal discharge), No poor dentition Cardiovascular: regular rate and rhythym, no murmur, rub, or gallop, pulses symmetric bilaterally, tachycardia, No edema Peripheral Pulses: 1+: dorsalis-pedis (R), dorsalis-pedis (L) Respiratory: no respiratory distress, no rales or rhonchi, clear to auscultation Gastrointestinal: soft, non-tender abdomen, tenderness (Bilateral lower abdomen. No rebound or guarding. Abdomen is soft. No epigastric abdominal pain.), other (Hypoactive bowel sounds.), No normoactive bowel sounds, No ascites, No guarding, No distension Genitourinary: no bladder tenderness (Exam limited secondary to abdominal pain.) , No pan in urethra Skin: warm, normal color, no rashes or abrasions Musculoskeletal: full muscle strength, other (Patient sits up independently), No generalized weakness Neurologic: AAOx3, sensation intact bilaterally, No CN II-XII Intact Psychiatric: interacting appropriately, not anxious, not encephalopathic, thought process linear Lab Data & Imaging Review 08/25/17 23:44 08/25/17 23:44 WBC 22.88 10^3/uL (3.80-9.50) H 08/25/17 23:44 RBC 5.86 10^6/uL (4.40-6.38) 08/25/17 23:44 Hgb 15.9 g/dL (13.7-17.5) 08/25/17 23:44 Hct 48.9 % (40.0-51.0) 08/25/17 23:44 MCV 83.4 fL (81.5-99.8) 08/25/17 23:44 MCH 27.1 pg (27.9-34.1) L 08/25/17 23:44 MCHC 32.5 g/dL (32.4-36.7) 08/25/17 23:44 RDW 18.5 % (11.5-15.2) H 08/25/17 23:44 Plt Count 489 10^3/uL (150-400) H 08/25/17 23:44 MPV 10.6 fL (8.7-11.7) 08/25/17 23:44 Neut % (Auto) 70.8 % (39.3-74.2) 08/25/17 23:44 Lymph % (Auto) 18.6 % (15.0-45.0) 08/25/17 23:44 [place] % (Auto) 8.4 % (4.5-13.0) 08/25/17 23:44 Eos % (Auto) 0.7 % (0.6-7.6) 08/25/17 23:44 Baso % (Auto) 0.6 % (0.3-1.7) 08/25/17 23:44 Nucleat RBC Rel Count 0.0 % (0.0-0.2) 08/25/17 23:44 Absolute Neuts (auto) 16.20 10^3/uL (1.70-6.50) H 08/25/17 23:44 Absolute Lymphs (auto) 4.25 10^3/uL (1.00-3.00) H 08/25/17 23:44 Absolute Monos (auto) 1.93 10^3/uL (0.30-0.80) H 08/25/17 23:44 Absolute Eos (auto) 0.15 10^3/uL (0.03-0.40) 08/25/17 23:44 Absolute Basos (auto) 0.14 10^3/uL (0.02-0.10) H 08/25/17 23:44 Absolute Nucleated RBC 0.00 10^3/uL (0-0.01) 08/25/17 23:44 Immature Gran % 0.9 % (0.0-1.1) 08/25/17 23:44 Immature Gran # 0.21 10^3/uL (0.00-0.10) H 08/25/17 23:44 PT 12.7 SEC (12.0-15.0) 08/25/17 23:44 INR 0.93 (0.83-1.16) 08/25/17 23:44 APTT 29.2 SEC (23.0-38.0) 08/25/17 23:44 VBG Lactic Acid 2.0 mmol/L (0.7-2.1) 08/26/17 00:48 Sodium 143 mEq/L (135-145) 08/25/17 23:44 Potassium 4.3 mEq/L (3.5-5.2) 08/25/17 23:44 Chloride 104 mEq/L (97-110) 08/25/17 23:44 Carbon Dioxide 21 mEq/l (22-31) L 08/25/17 23:44 Anion Gap 18 mEq/L (8-16) H 08/25/17 23:44 BUN 42 mg/dL (7-23) H 08/25/17 23:44 Creatinine 1.2 mg/dL (0.7-1.3) 08/25/17 23:44 Estimated GFR > 60 08/25/17 23:44 Glucose 103 mg/dL (70-100) H 08/25/17 23:44 Calcium 11.7 mg/dL (8.5-10.4) H 08/25/17 23:44 Phosphorus 3.1 mg/dL (2.5-4.5) 08/25/17 23:44 Total Bilirubin 0.8 mg/dL (0.1-1.4) 08/25/17 23:44 Conjugated Bilirubin 0.4 mg/dL (0.0-0.5) 08/25/17 23:44 Unconjugated Bilirubin 0.4 mg/dL (0.0-1.1) 08/25/17 23:44 AST 29 IU/L (17-59) 08/25/17 23:44 ALT 32 IU/L (21-72) 08/25/17 23:44 Alkaline Phosphatase 73 IU/L (38-126) 08/25/17 23:44 Total Protein 8.5 g/dL (6.3-8.2) H 08/25/17 23:44 Albumin 4.9 g/dL (3.5-5.0) 08/25/17 23:44 Lipase 310 IU/L (23-300) H 08/25/17 23:44 Patient ABO/Rh O NEGATIVE 08/25/17 23:44 Antibody Screen NEGATIVE 08/25/17 23:44 Imaging Review: Contrast Enhanced CT Scan of the Abdomen and Pelvis Clinical History: 61-year-old male presenting to the ED with generalized abdominal pain and black tarry stools with a prior history of diverticulitis and C. difficile colitis, and an elevated white blood cell count. Technique: Neither oral nor rectal contrast was administered. Following the uncomplicated intravenous administration of 85 mL of Isovue-300, a multidetector helical CT scan was obtained from the lung bases inferiorly through the proximal femora, with images reformatted at 5.00 and 1.50 mm increments, and reviewed at a variety of window and level settings. Parasagittal and paracoronal reconstructed images are reviewed on the workstation. The DFOV is 42.0 cm. Dose reduction techniques were utilized. Comparison Studies: Contrast-enhanced CT imaging of the abdomen and pelvis dated 11/01/2016 and 05/24, and limited right upper quadrant abdominal sonography dated 07/17/2013. Findings: Lung Bases: Clear. There is no pleural or pericardial effusion. Liver: There is some mild volume-averaging of fat in the falciform ligament. The liver is normal in size. Bile Ducts: There is mild prominence of the periportal aspect of the CBD although this tapers normally at the ampulla. This likely reflects a mild reservoir type effect following gallbladder removal. The pancreatic duct is not dilated. Gallbladder: The patient has had a prior cholecystectomy. Pancreas: There is a tiny lipoma along the posterior neck, which is stable. There is no peripancreatic inflammation. Spleen: Normal. Adrenal Glands: Normal. Kidneys/Ureters/Urinary Bladder: The kidneys are normal in size, shape, and position, with no hydronephrosis. There is a stable exophytic simple cyst off the inferolateral aspect of the right kidney, measuring 2.3 x 3.1 cm. The ureters are not dilated, and the urinary bladder is moderately distended. GI Tract: The stomach is moderately fluid distended. There is an diverticulum adjacent to the posterior pancreatic head, containing an air-fluid level, and similar to the previous exam. There is some intraluminal fluid within loops of small bowel, which are otherwise unremarkable. There is a normal appearance to the retrocecal appendix. A few colonic diverticula are seen in association with the ascending colon and are also noted throughout the descending colon, and are particularly numerous in the sigmoid segment of the colon, where there is also associated wall thickening. There is no pericolonic abscess. Retroperitoneum: There is no localized fluid collection. Mesentery/Omentum/Peritoneum: There is no ascites or free air. There is some subtle mesenteric stranding seen medial to the left iliacus muscle and involving the fat adjacent to the proximal sigmoid, consistent with low-grade diverticulitis. There are several shotty mesenteric lymph nodes. Moderate centripetal obesity is present. Vessels: The abdominal aorta is normal in size, and tapers normally. The IVC is normal in caliber. The splenic vein, superior mesenteric vein, and the main portal vein are patent. Reproductive Organs: The prostate gland is mildly enlarged, measuring 5.1 x 3.6 x 4.1 cm. Abdominal Wall: There is some herniation of omental fat into the upper left inguinal canal, similar to previous studies. Osseous Structures: There is a dextrorotatory lumbar scoliosis with multilevel degenerative changes. Impression: 1. Mild active diverticulitis of the sigmoid colon with mild reactive lymphadenitis, but no pericolonic abscess or pneumoperitoneum. 2. Status post cholecystectomy. 3. Mild prostatomegaly. Visualized and Interpreted Chest x-ray results: Yes EKG additional interpertation: Sinus tachycardia in the 120s. No acute ST changes. PVC occasional. QTC 412 Assessment & Plan Assessment: Very pleasant 61-year-old gentleman with past medical history significant for diverticulitis who presents emergency department with 3 day history of increasing abdominal pain, initial BRBPR are and now melenic stools Acute diverticulitis (Acute) - CT abdomen pelvis with sigmoid diverticulitis. Patient has been started on ciprofloxacin and Flagyl. He does have a previous history of C diff during his last hospitalization while on Cipro and Flagyl. Will discuss with GI if additional prophylactic coverage with p.o. Vancomycin is warranted. Melena - patient is denying any upper abdominal pain or epigastric pain. If H& H at this time is acceptable but anticipate some decline due to hemoconcentration after he has been appropriately hydrated. Patient reports he has continued to have some melanic stools that are formed. Given history of C diff and no upper GI symptoms or emesis hold off on PPI tx pending discussion with GI for which a call has been placed in awaiting call back. Sepsis criteria met with tachycardia, leukocytosis, elevated lactic acid. Patient without any evidence of other or end-organ damage. Heart rate is improved status post IV fluids. No cultures were obtained prior to antibiotics the patient is afebrile. Repeat CBC in the morning and serial lactates until less than 2. Abdominal pain-p.r.n. Morphine and Ativan IV at this time. Patient is NPO pending GI recs. Dehydration-IV fluids while patient is NPO. hemorrhoids - pt initially with brbpr and now reporting multiple melanic tarry stools. see above. hx mesenteric thrombus - CT neg for findings today. holding anticoagulation 2/2 gi bleed Hypercalcemia-likely related to dehydration. Continue with IV fluid hydration. Repeat BMP in the morning Benign essential hypertension-holding lisinopril while NPO. Hydralazine will be available p.r.n. Depression resume Wellbutrin once patient's diet advance. Ativan available p.r.n. FEN - IVF with NS. electrolyte monitoring and replacement prn. NPO. PPX - SCDs. Anticoagulation currently contraindicated in setting of GI bleeding. Cor status-full Disposition patient admitted inpatient status on the medical floor given severity of patient's diverticulitis and his ongoing need for IV antibiotics, GI evaluation. Anticipate greater than 2 midnight stay.
[2017-08-26 06:13] LABS: PLATELET COUNT 337 10^3/uL (150-400)
--- NOTE | 2017-08-26 07:13 | PDMN ---
Medical Necessity Medical necessity: M160 sepsis and other febrile illness- tachycardia, leukocytosis, elevated lactic acid with acute diverticulitis- melena, IV abx, fluids and pain meds, GI consult needed. anticipate > 2 midnights for ongoing monitoring, eval and tx
[2017-08-26] MEDS ORDERED: METHOCARBAMOL 500 MG TAB PO PRN (10:54)
[2017-08-26] MEDS ORDERED: ALPRAZolam 0.5 MG TAB PO PRN (10:54)
[2017-08-26] MEDS ORDERED: CARBOXYMETHYLCELLULOSE 1% 0.4 ML DROPERETTE EACHEYE PRN (10:54)
[2017-08-26] MEDS ORDERED: ALBUTEROL 60 PUFFS/8 GM MDI IH PRN (10:54)
--- NOTE | 2017-08-26 10:56 | HOSPPROG ---
Hospitalist Progress Note Assessment/Plan: # sepsis (leukocytosis, tachycardia) d/t diverticulitis # acute diverticulitis - cont flagyl/cipro - cont IVF, trial of clear liquids today - will give GI and gen surg referral on dc - GI pathogen panel # hx c. dif - will start ppx vanc PO today # ? GIB - not common with diverticulitis - no BM since admission argues against severe GIB - hgb ok - send stool for occult blood # hx mesenteric thrombosis - off AC # htn - holding meds for now # depression - wellbutrin # asthma - no acute exacerbation Objective: Vital Signs Temp Pulse Resp BP Pulse Ox 38.1 C 82 16 114/59 L 98 08/26/17 10:44 08/26/17 08:45 08/26/17 08:45 08/26/17 08:45 08/26/17 08:45 Laboratory Results 08/26/17 06:06 08/26/17 06:06 08/25/17 08/26/17 08/27/17 05:59 05:59 05:59 Intake Total 2000 725 Output Total 650 620 Balance 1350 105 PT 12.7 SEC (12.0-15.0) 08/25/17 23:44 INR 0.93 (0.83-1.16) 08/25/17 23:44 ICD10 Worksheet Patient Problems: Problems Problem Status Onset Acute diverticulitis Acute Acute cholecystitis Acute C. difficile diarrhea Acute ~11/03/16 Diverticulitis Acute Mesenteric vein thrombosis Acute Sepsis Acute
--- NOTE | 2017-08-26 11:54 | ASMTCMCOM ---
CM Note CM Note Notes: Patient admitted for lower abdominal pain and tarry stools. CT showed sigmoid diverticulitis. Patient will be treated with IV antibiotics and pain medication. 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 I do not anticipate any discharge needs, but Case Management is available if any arise. Date Signed: 08/26/2017 11:53 AM Electronically Signed By:Anita Martin RN
--- NOTE | 2017-08-26 12:48 | GCON ---
[f rep st] CONSULTATION CHIEF COMPLAINT: Abdominal pain. HISTORY OF PRESENT ILLNESS: Patient is a 61-year-old with history of diverticulitis and E coli colit is, who was admitted in October 2016. Unfortunately, that episode was complicated by C diff. He also carias wilner a history of an inferior mesenteric thrombus, however eventually tapered off his anticoagulant. Kavin darby been doing well until about 3 days ago. Started to notice some abdominal pain, had episodes with b lack stool, although did take some Pepto Bismol. He states that he took the Pepto after he noted lobito ck stools. He had some nausea but no vomiting. No hematemesis. No GERD symptoms. Belly pain noted in the left quadrant area. No diarrhea or constipation. He did have a little bit of bright red blo od, but he attributes this to his known hemorrhoids. He takes a baby aspirin a day. Came in for tomasa luation and found to have diverticulitis by CT scan. Patient's last colonoscopy was in 2008 with sca ttered diverticulosis noted. He has not had an upper endoscopy. ALLERGIES: Cephalosporins. MEDICATIONS ON ADMISSION: Include ibuprofen occasionally, albuterol inhaler, lisinopril, baby aspiri n, Xanax, and Wellbutrin. PAST MEDICAL HISTORY: Diverticulitis, history of C diff in October 2016, inferior mesenteric thrombosis, depression, hyperlipidemia, and hypertension. SOCIAL HISTORY: He drinks alcohol occasionally. FAMILY HISTORY: Negative for colon cancer or colon polyps. His mother had Crohn disease. REVIEW OF SYSTEMS: I have performed a complete review of systems which was negative except for the p ertinent positives and negatives noted above in HPI. PHYSICAL EXAMINATION: VITAL SIGNS: Temp is 36.6, BP 114/59, pulse is 82. CONSTITUTIONAL: Alert an d oriented. EYES: No scleral icterus. HENT: No oral lesions. CARDIOVASCULAR: Regular rhythm. C HEST: Clear to auscultation. ABDOMEN: Positive bowel sounds. Tenderness in the left lower quadran t without rebound. NEUROLOGIC: Nonfocal. SKIN: No lesions. LABORATORY DATA: White count is elevated on admission to 22.8; today it is 14.7. Hematocrit on admi ssion was 48.9, now 39.1 with hemoglobin of 12.8. Coag's normal with ProTime of 12.7 with INR 0.97. Chemistries: BUN is 30 with a creatinine 0.9. LFTs are normal. CT scan of the abdomen shows mild active diverticulitis of the sigmoid colon with mild reactive lymph adenitis. No abscesses. Status post cholecystectomy. ASSESSMENT: 1. Abdominal pain: Patient with history of diverticulitis with evidence of active diverticulitis on CT scan. I think this likely explains patient's abdominal pain. 2. Possible melenic stools: Unclear if patient had a true gastrointestinal bleed, or if this may be from recent Pepto-Bismol or passage of old blood related to his diverticulosis. Clinically, he is n ot having evidence of significant or ongoing gastrointestinal bleeding. His hematocrit has dropped a little; suspect from hemoconcentration, but still within normal limits and no further bleeding. PLAN: 1. Recommend conservative measures as you are doing with antibiotics and H2 daniel. 2. Monitor H and H. could consider an upper endoscopy if evidence of active GI bleeding. 3. Would recommend colonoscopy once this bout of diverticulitis has resolved, about 6-8 weeks after. At that time, can also do upper endoscopy unless evidence of GI bleeding in the meantime. /[id number]/MODL
[2017-08-26] MEDS: VANCOMYCIN 125 MG/2.5 ML UDL PO SCH ×2 (13:31→20:28)
[2017-08-26] MEDS: CIPROFLOXACIN 400 MG/DEXTROSE 200 ML IV SCH (13:32)
[2017-08-26] MEDS: ALPRAZolam 1 MG TAB PO PRN (21:35)
[2017-08-27] MEDS: CIPROFLOXACIN 400 MG/DEXTROSE 200 ML IV SCH ×2 (03:42→13:45)
[2017-08-27 04:55] LABS: PLATELET COUNT 296 10^3/uL (150-400)
[2017-08-27] MEDS ORDERED: ATOMOXETINE HCL 40 MG PO SCH (09:00)
[2017-08-27] MEDS: VANCOMYCIN 125 MG/2.5 ML UDL PO SCH ×2 (09:27→20:23)
[2017-08-27] MEDS: buPROPion XL 150 MG TAB PO SCH (09:28)
[2017-08-27] MEDS: MONTELUKAST SODIUM 10 MG TAB PO SCH (09:28)
[2017-08-27] MEDS: ATOMOXETINE HCL 40 MG PO SCH (09:43)
--- NOTE | 2017-08-27 11:21 | HOSPPROG ---
Hospitalist Progress Note Assessment/Plan: # sepsis (leukocytosis, tachycardia) d/t diverticulitis # acute diverticulitis - cont flagyl/cipro - advance diet today - needs colonoscopy in about 2 months; consider sigmoidectomy - GI pathogen panel # hx c. dif - will start ppx vanc PO today # ? GIB - not common with diverticulitis - no BM since admission argues against severe GIB - hgb ok - agree with monitoring for now # hx mesenteric thrombosis - off AC # htn - holding meds for now # depression - wellbutrin # asthma - no acute exacerbation Subjective: pain better today; still no BM Objective: Vital Signs Temp Pulse Resp BP Pulse Ox 36.5 C 88 17 127/68 H 94 08/27/17 09:44 08/27/17 09:44 08/27/17 09:44 08/27/17 09:44 08/27/17 09:44 Laboratory Results 08/27/17 04:29 08/27/17 04:29 08/26/17 08/27/17 08/28/17 05:59 05:59 05:59 Intake Total 1999 2772 1707 Output Total 650 2480 Balance 4819 486 6279 PT 12.7 SEC (12.0-15.0) 08/25/17 23:44 INR 0.93 (0.83-1.16) 08/25/17 23:44 - Physical Exam Constitutional: no apparent distress, appears nourished Cardiovascular: regular rate and rhythym, no murmur, rub, or gallop Respiratory: no respiratory distress, no rales or rhonchi Gastrointestinal: normoactive bowel sounds, tenderness (LLQ), other (soft), No guarding, No rebound, No distension ICD10 Worksheet Patient Problems: Problems Problem Status Onset Acute diverticulitis Acute C. difficile diarrhea Acute ~11/03/16 Acute cholecystitis Acute Diverticulitis Acute Mesenteric vein thrombosis Acute Sepsis Acute
[2017-08-27] MEDS: LORazepam 2 MG/ML INJ IVP PRN ×2 (13:45→20:25)
[2017-08-28] MEDS: ALPRAZolam 1 MG TAB PO PRN (00:12)
[2017-08-28] MEDS: CIPROFLOXACIN 400 MG/DEXTROSE 200 ML IV SCH (02:51)
[2017-08-28 04:35] VITALS: RESP 16
[2017-08-28 04:55] LABS: PLATELET COUNT 345 10^3/uL (150-400)
[2017-08-28] MEDS: MONTELUKAST SODIUM 10 MG TAB PO SCH (08:19)
[2017-08-28] MEDS: buPROPion XL 150 MG TAB PO SCH (08:20)
[2017-08-28] MEDS: VANCOMYCIN 125 MG/2.5 ML UDL PO SCH (08:20)
[2017-08-28 09:07] VITALS: BP 144/68; PULSE 93; TEMP 98.5; O2SAT 96
[2017-08-28] MEDS: ATOMOXETINE HCL 40 MG PO SCH (10:35)
--- NOTE | 2017-08-28 10:41 | GDS ---
[f rep st] DISCHARGE SUMMARY DIAGNOSES: 1. Acute diverticulitis. 2. Possible gastrointestinal bleed. 3. Sepsis due to diverticulitis. 4. History of Clostridium difficile. 5. History of mesenteric thrombosis off anticoagulation. 6. Hypertension. 7. Depression. 8. Asthma. HOSPITAL COURSE: A 61-year-old male with a history of diverticulitis presented with diverticulitis. He also had a history of questionable melena. On the day of discharge, he is tolerating a full diet with markedly decreased pain. He had been treated with ciprofloxacin as well as Flagyl. He will be transitioned to an additional week of Augmentin on discharge. He is comfortable with this plan. He will follow up with GI for colonoscopy in about 2 months. I have given him a referral to see Dr. Georgie grullon as he has had multiple episodes of diverticulitis in the past as well. He had questionable melena. He was seen by GI, did not feel like he needed an inpatient endoscopy. His hemoglobin was lower than on admission; however, has been stable over a few days. Recommended th at he hold his aspirin for a few days and then restart. He has a history of Clostridium difficile. He will be given vancomycin oral prophylaxis while he is taking Augmentin. He is comfortable with this. ALLERGIES: He has an allergy to cephalosporins. He tells me he has not had problems with Augmentin in the past. BILLING: I spent more than 30 minutes on the day of discharge coordinating care. /[id number]/MODL
== END 2017-08-28 13:00 | disposition home or self-care (01) | DRG 871 ==
LOC: F1N 08-26 01:19
PROVIDERS: ADMIT Family Medicine; ATTEND Student in an Organized Health Care Education/Training Program
DX: A41.9 Sepsis, unspecified organism (principal); K57.33 Diverticulitis of large intestine without perforation or abscess with bleeding; I10 Essential (primary) hypertension; E78.5 Hyperlipidemia, unspecified; F32.9 Major depressive disorder, single episode, unspecified; J45.909 Unspecified asthma, uncomplicated; Z79.82 Long term (current) use of aspirin; Z86.718 Personal history of other venous thrombosis and embolism
CPT/HCPCS: J0744; J2060; J2270; J2405; Q9967